=== PATIENT | female | born 1960 | race Caucasian/White ===

== ENCOUNTER 2025-01-23 11:10 | Day surgery (SDC) | payer OTHER ==
[~2025-01-23] VITALS: Ht 162.6 cm; Wt 58.2 kg
[~2025-01-23 11:10] MED LIST: Lactated Ringer's 1,000 ML IV ONE; propofoL 50 ML IV ONE
[2025-01-23] MEDS ORDERED: ZANAFLEX413 (11:26)
[2025-01-23] MEDS ORDERED: OMEP20ER (11:26)
[2025-01-23] MEDS ORDERED: HYDROXYZINE PAM25 MG (11:27)
[2025-01-23] MEDS ORDERED: DIAZEPAM5 M2 (11:27)
[2025-01-23] MEDS ORDERED: LIDOCAINE1 EACH (11:27)
[2025-01-23] MEDS ORDERED: NEURONTIN300 MG (11:27)
[2025-01-23] MEDS ORDERED: SYMBICORT 80-10.2 GM (11:28)
[2025-01-23] MEDS ORDERED: ACET325 (11:28)
[2025-01-23] MEDS ORDERED: Lactated Ringer's 1,000 ML IV ONE (11:57)
[2025-01-23] MEDS ORDERED: Ondansetron HCl 2 MG / ML 2ML Vial ONE (12:24)
== END 2025-01-23 13:37 | disposition home or self-care (01) ==
LOC: ORSCSDS 11:10
PROVIDERS: Specialist
PROC: 0DB98ZX Excision of Duodenum, Via Natural or Artificial Opening Endoscopic, Diagnostic (ICD-10-PCS; principal; 2025-01-23 12:30)
PROC: 0DBE8ZX Excision of Large Intestine, Via Natural or Artificial Opening Endoscopic, Diagnostic (ICD-10-PCS; principal; 2025-01-23 12:30)
PROC: 0DB68ZX Excision of Stomach, Via Natural or Artificial Opening Endoscopic, Diagnostic (ICD-10-PCS; principal; 2025-01-23 12:30)
PROC: 0D758ZZ Dilation of Esophagus, Via Natural or Artificial Opening Endoscopic (ICD-10-PCS; principal; 2025-01-23 12:30)
PROC: 0DB58ZX Excision of Esophagus, Via Natural or Artificial Opening Endoscopic, Diagnostic (ICD-10-PCS; principal; 2025-01-23 12:30)
DX: R13.10 Dysphagia, unspecified (principal); R10.13 Epigastric pain; R19.4 Change in bowel habit; K22.2 Esophageal obstruction; K64.4 Residual hemorrhoidal skin tags; K64.8 Other hemorrhoids; K57.30 Diverticulosis of large intestine without perforation or abscess without bleeding; K21.9 Gastro-esophageal reflux disease without esophagitis; K29.50 Unspecified chronic gastritis without bleeding; E78.5 Hyperlipidemia, unspecified; F17.210 Nicotine dependence, cigarettes, uncomplicated; Z79.899 Other long term (current) drug therapy
CPT/HCPCS: 88305; C1769; J2405; J2704; J7120